=== PATIENT | female | born 1990 | race African-American/Black ===

== ENCOUNTER 2019-08-19 02:32 | Inpatient (IN) | payer MEDICAID ==
[~2019-08-19] VITALS: Ht 165.1 cm; Wt 126.6 kg
[~2019-08-19 02:32] MED LIST: ALBU5SOL6 NEB; ALBUTEROL; CLARITIN; IRON
[2019-08-19] MEDS ORDERED: ALBUTEROL (0.083%) 2.5MG/3ML NEB HHN STA ×2 (02:57→05:54)
[2019-08-19] MEDS ORDERED: PREDNISONE 20MG TABLET PO STA (02:57)
[2019-08-19] MEDS ORDERED: IPRATROPIUM BROMIDE (0.02%) 0.5MG/2.5ML NEB HHN STA (02:57)
[2019-08-19 05:56] LABS: BASOPHILS % 0.8 % (0.0-2.0); HEMATOCRIT. 33.7 % (36.0-48.0); HEMOGLOBIN. 10.8 g/dL (12.0-16.0); LYMPHOCYTES % 19.3 % (20.0-50.0); MEAN CORPUSCULAR HEMOGLOBIN 23.3 pg (28.0-32.0); MEAN CORPUSCULAR VOLUME 72.9 fL (81.0-99.0); MEAN PLATELET VOLUME 8.7 fl (7.4-10.4); MONOCYTES % 4.7 % (2.0-8.0); NEUTROPHILS % 74.2 % (40.0-76.0); PLATELET 243 x1000/uL (130-400); RED BLOOD CELL COUNT 4.63 mill/uL (4.2-5.4); RED CELL DISTRIBUTION WIDTH 20.3 % (11.6-14.6)
[2019-08-19 05:56] LABS: BG BASE EXCESS 2.7 mmol/L (-2.0-2.0); BG CARBOXYHEMOGLOBIN 0.3 % (0.5-1.5); BG DEOXYHEMOGLOBIN 6.8 % (0.0-5.0); BG FRACTION INSPIRED OXYGEN 21; BG HCO3 ACT 28.7 mmol/L (22.0-26.0); BG METHEMOGLOBIN 0.3 % (0.0-1.5); BG OXYGEN SATURATION 93.2 % (92.0-98.5); BG OXYHEMOGLOBIN 92.6 % (94.0-97.0); BG PCO2 50.6 mmHg (35.0-45.0); BG PH 7.371 (7.350-7.450); BG PO2 72.5 mmHg (75.0-100.0); BG SAMPLE SITE RIGHT RADIAL; BG TOTAL HEMOGLOBIN 11.3 g/dL (12.0-18.0); BG VENT MODE ROOM AIR
[2019-08-19 06:03] LABS: CHLORIDE 108 mEq/L (98-107)
[2019-08-19] MEDS ORDERED: ONDANSETRON HCL 4MG/2ML INJ IV PRN (08:15)
[2019-08-19] MEDS ORDERED: KETOROLAC 15MG/ML VIAL IV PRN (08:15)
[2019-08-19] MEDS ORDERED: DOCUSATE SODIUM 100MG CAPSULE PO PRN (08:15)
[2019-08-19] MEDS ORDERED: ZOLPIDEM TARTRATE 5MG TABLET PO PRN (08:15)
[2019-08-19] MEDS ORDERED: NITROGLYCERIN 0.4MG TABLET SL SL PRN (08:15)
[2019-08-19] MEDS ORDERED: GUAIFENESIN 200MG/10ML SUGAR FREE UDC PO PRN (08:15)
[2019-08-19] MEDS ORDERED: MAGNESIUM/ALUMINUM HYDROXIDE/SIMETHICONE 30ML UDC PO PRN (08:15)
[2019-08-19] MEDS ORDERED: LORAZEPAM 0.5MG TABLET PO PRN (08:15)
[2019-08-19] MEDS ORDERED: ACETAMINOPHEN 325MG TABLET PO PRN (08:15)
[2019-08-19] MEDS ORDERED: IPRATROPIUM/ALBUTEROL 0.5-3(2.5)MG/3ML NEB NEB PRN (08:15)
[2019-08-19 09:50] VITALS: BP 126/85
[2019-08-19 09:51] VITALS: BP 126/85
[2019-08-19] MEDS ORDERED: POTASSIUM CHLORIDE 20MEQ TABLET SR PO SCH (10:30)
[2019-08-19] MEDS ORDERED: FERR-71 PO (10:49)
[2019-08-19] MEDS ORDERED: METF-416 PO (10:52)
[2019-08-19] MEDS ORDERED: CLON0.1T MT (10:52)
[2019-08-19] MEDS ORDERED: FURO-152 PO (10:52)
[2019-08-19] MEDS ORDERED: INFLUENZA VIRUS VACCINE(AFLURIA) 0.5ML SYR IM ONE (11:00)
[2019-08-19] MEDS ORDERED: DEXTROSE 50% WATER 50ML SYRINGE IV PRN (11:30)
[2019-08-19] MEDS: GUAIFENESIN/DM 600MG/30MG ER TAB 12HR PO SCH ×2 (11:32→21:03)
[2019-08-19] MEDS: FAMOTIDINE 20MG TABLET PO SCH ×2 (11:33→21:03)
[2019-08-19] MEDS: ENOXAPARIN 40MG/0.4ML SYR SUBCUT SCH ×2 (11:34→21:03)
[2019-08-19] MEDS: IPRATROPIUM/ALBUTEROL 0.5-3(2.5)MG/3ML NEB HHN SCH ×3 (11:45→19:59)
[2019-08-19 12:00] VITALS: BP 152/92
[2019-08-19] MEDS: INSULIN LISPRO 100 UNITS/ML SUBCUT SCH ×3 (12:15→21:24)
[2019-08-19] MEDS: BLOOD SUGAR DIAGNOSTIC STRIP TEST SCH ×3 (12:18→20:50)
[2019-08-19] MEDS: METHYLPREDNISOLONE SOD SUCC 125 MG/2 ML VIAL IV SCH ×2 (14:35→21:04)
[2019-08-19 16:00] VITALS: BP 152/89
[2019-08-19 17:38] LABS: CREATINE KINASE 78 IU/L (26-192)
[2019-08-19 17:39] LABS: CREATINE KINASE MB FRACTION < 1.0 ng/mL (0.5-3.6)
[2019-08-19 20:00] VITALS: BP 182/113
[2019-08-19] MEDS: CLONIDINE 0.1MG TABLET PO PRN (21:03)
[2019-08-20] VITALS (7 sets, daily range): BP systolic 146–193; BP diastolic 83–106
[2019-08-20 00:33] LABS: CREATINE KINASE 74 IU/L (26-192)
[2019-08-20 00:34] LABS: CREATINE KINASE MB FRACTION < 1.0 ng/mL (0.5-3.6)
[2019-08-20] MEDS: IPRATROPIUM/ALBUTEROL 0.5-3(2.5)MG/3ML NEB HHN SCH ×4 (00:57→12:50)
[2019-08-20] MEDS: BLOOD SUGAR DIAGNOSTIC STRIP TEST SCH ×2 (06:49→11:56)
[2019-08-20] MEDS: INSULIN LISPRO 100 UNITS/ML SUBCUT SCH ×2 (06:55→12:14)
[2019-08-20] MEDS: METHYLPREDNISOLONE SOD SUCC 125 MG/2 ML VIAL IV SCH (06:55)
[2019-08-20 08:03] LABS: CHLORIDE 107 mEq/L (98-107)
[2019-08-20] MEDS: FAMOTIDINE 20MG TABLET PO SCH (08:47)
[2019-08-20] MEDS: ENOXAPARIN 40MG/0.4ML SYR SUBCUT SCH (08:48)
[2019-08-20] MEDS: GUAIFENESIN/DM 600MG/30MG ER TAB 12HR PO SCH (08:48)
[2019-08-20] MEDS: CLONIDINE 0.1MG TABLET PO PRN (08:48)
[2019-08-20] MEDS ORDERED: CLONIDINE 0.1MG TABLET PO SCH (13:15)
== END 2019-08-20 13:15 | disposition home or self-care (01) | DRG 133 ==
LOC: ER 02:32 → 5WST 06:06 → ENRESERV 07:08
PROVIDERS: ADMIT Internal Medicine; ATTEND Internal Medicine
DX: J96.01 Acute respiratory failure with hypoxia (principal); E44.1 Mild protein-calorie malnutrition; E83.51 Hypocalcemia; J45.901 Unspecified asthma with (acute) exacerbation; E66.01 Morbid (severe) obesity due to excess calories; E11.9 Type 2 diabetes mellitus without complications; J96.02 Acute respiratory failure with hypercapnia; E87.6 Hypokalemia; G47.30 Sleep apnea, unspecified; I10 Essential (primary) hypertension; Z79.4 Long term (current) use of insulin; Z91.012 Allergy to eggs; Z68.42 Body mass index [BMI] 45.0-49.9, adult
CPT/HCPCS: 36415; 36600; 71045; 80048; 80320; 82375; 82550; 82553; 82805; 82962; 83036; 83880; 84484; 93005; 93970; 94640; 94644; 99285; J1650; J1815; J2930; J7512; J7611; J7620; G0480